=== PATIENT | male | born 1995 | race Caucasian/White ===

== ENCOUNTER 2024-03-08 21:15 | Emergency (ER) | payer MEDICAID ==
[2024-03-08] MEDS ORDERED: Lidocaine 1% 50 MG/5 ML Syringe ONE (22:04)
[2024-03-08] MEDS: Lidocaine 1% 5 ML VIAL INJECT ONE (22:13)
[2024-03-08] MEDS: cefTRIAXone 1 GM Vial IM ONE (22:13)
[2024-03-08] MEDS: oxyCODONE 5 MG Tab PO ONE (22:14)
[2024-03-08] MEDS: Take Home: Levofloxacin 500 MG Tab, 3 Tab Pack PO ONE (22:17)
== END 2024-03-08 22:45 | disposition home or self-care (01) ==
LOC: LL.ED 21:15
DX: H60.332 Swimmer's ear, left ear (principal); Z88.8 Allergy status to other drugs, medicaments and biological substances; Z79.899 Other long term (current) drug therapy
CPT/HCPCS: 96372; 99282; 99283; A9270-GY; J0696; J3490